=== PATIENT | female | born 1980 | race Caucasian/White ===

== ENCOUNTER 2025-04-22 08:21 | Outpatient (CLI) | payer OTHER, SELFPAY ==
--- NOTE | ~2025-04-22 | XR_ITS ---
EXAM/PROCEDURE: XR chest 2V - 04/22/2025 8:35 CDT HISTORY: 44 years old Female with Nicotine dependence TECHNIQUE: Two view(s) of the chest. COMPARISON: None available. FINDINGS: LUNGS/ PLEURA: No focal consolidation. No appreciable pneumothorax or large pleural effusion. HEART/ MEDIASTINUM: Heart appears normal in size. BONES: No acute osseous abnormality. OTHER: Visualized upper abdomen is unremarkable. IMPRESSION: No acute process. Reviewed, dictated and finalized at location A. IMPRESSION: No acute process.
--- OUTSIDE RECORDS SUMMARY | 2025-04-22 08:33 | XMS_ITS | Data Portability ---
Author Organization [place] - [facility] [employer], Main Office Address [address] [place] [address] Care Team Providers Care [employer] Hat Blocker Name Role Phone ETIENNE CHOWDARY Primary Care Provider Assessment Encounter Date Assessment Date Assessment LastModified by Organization Details LastModified Time 12/18/2022 12/18/2022 MONTESSORI TODDLER TEACHER- Romain Espitia and CARMEND on Mammogram. Not available 12/18/2022 16:34:59 12/23/2023 12/23/2023 43 yo F with - WELL ADULT VISIT - SMOKER - OVERWEIGHT D/w pt about her findings, recent labs & imagines and further plan of care. Will do routine labs, cxr. Pt declined for hcg. Diet and exercise explained in detail. Educated about different options for her. HM: WWE - 2 yrs ago, normal as per pt. Cont f/u with Gyne as per schedule. Mammo - 03/05, normal as per pt. Pt gets with her Gyne. Flu - 12/23/23. Tdap - 12/01. F/u in 3-4 weeks. Annual labs in 01/05. [email or web address] Not available 12/23/2023 17:20:17 02/13/2024 02/13/2024 The patient gave verbal consent using TelePhonic services and the consent is documented in the medical record prior to using the service. The patient has been informed of what a TeleMedicine visit is. Patient is located at home. Provider is located at office. Names and roles of persons in addition to the patient and provider participating in telemedicine services include none. The patient had a 5 minute TeleMedicine consultation via [employer] to discuss the following: left eye lid swelling, periorbital cellulitis [email or web address] Not available 02/13/2024 11:37:17 03/03/2025 03/03/2025 44 yo F with - WELL ADULT VISIT - VIT D DEFICIENCY - SMOKER - OVERWEIGHT Annual labs: 03/24/24. D/w pt about her findings, recent labs & imagines and further plan of care. Will do routine labs, cxr. Pt declined for hcg. Meds as directed. Diet and exercise explained in detail. Educated about different options for her. Cont f/u with Ophtho as per schedule. HM: WWE - 2 yrs ago, normal as per pt. Cont f/u with Gyne as per schedule. Mammo - 10/29/24. Pt gets with her Gyne. Flu - 12/23/23. Tdap - 12/01. F/u in 2-3 weeks. Annual labs in 04/08. [email or web address] Not available 03/03/2025 16:57:04 Plan of Treatment Reminders Order Date Submit Date Provider Last Modified By Organization Details Last Modified Time Details Appointments None recorded. Lab glycohemogl obin, total, blood 2024 025 4 [facility] (Lab), [address] [place], [address], 5 18:01:49 vitamin D, 25-hydroxy, total, serum 2024 025 [place] [address] [facility], Replaced by [facility] [address], [place], [address], 5 18:01:49 CBC w/ auto diff 2024 025 [email or web address] [facility] (Lab), [address] [place], [address], 5 18:01:48 CMP, serum or plasma 2024 025 4 [facility] (Lab), [address] [place], [address], 5 18:01:48 lipid panel, serum [address] (Lab), [address] [place], [address], 5 18:01:48 TSH, serum, reflex free T4 [address] (Lab), [address] [place], [address], 5 18:01:48 urinalysis complete, reflex culture [address] (Lab), [address] [place], [address], 5 18:01:48 vitamin D, 25-hydroxy, total, serum [address] (Lab), [address] [place], [address], 4 07:57:22 glycohemogl obin, total, blood [address] (Lab), [address] [place], [address], 4 07:57:22 CBC w/ auto diff [address] (Lab), [address] [place], [address], 4 07:57:21 CMP, serum or plasma [address] (Lab), [address] [place], [address], 4 07:57:21 lipid panel, serum [address] (Lab), [address] [place], [address], 4 07:57:21 TSH, serum, reflex free T4 [address] (Lab), [address] [place], [address], 4 07:57:22 urinalysis complete, reflex culture [address] (Lab), [address] [place], [address], 4 07:57:22 lipid panel, serum 2022 023 [facility], [address] [place], [address], 3 04:23:36 TSH, serum, reflex free T4 [address], [address] [place], [address], 3 08:00:39 CMP, serum or plasma 2022 023 [facility], [address] [place], [address], 3 04:23:37 HbA1c (hemoglobin A1c), blood 2022 023 [facility], [address] [place], [address], 3 04:23:40 CBC w/ auto diff 2022 023 [facility], [address] [place], [address], 3 04:23:38 Referral None recorded. Procedures None recorded. Surgeries None recorded. Imaging XR, chest, 2 view [address], [address], [place], [address], 5 14:35:50 XR, chest, 2 view 2023 024 [email or web address] Not available 4 08:59:54 Medication Orders neomycin-po lymyxin-hyd rocort 3.5 mg-10,000 unit/mL-1 % ear drops,susp 2024 025 [id number], [address], [place], [place], [id number], 5 16:52:26 nicotine 7 mg/24 hr daily transdermal patch 2024 025 [id number], [address], [place], [place], [id number], 5 16:48:08 doxycycline monohydrate 100 mg capsule 2023 024 [id number], [address], [place], [place], [id number], 5 16:42:26 nicotine 7 mg/24 hr daily transdermal patch 2023 024 [email or web address] [id number], [address] [place], [place], [id number], 4 17:19:30 Patient TargetsNo targets recorded. Patient Instructions Encounter Date Encounter Id Patient Instructions Last Modified By Organization Details Last Modified Time 12/18/2022 [id number] FU in 1 year for wellness after 12/19/23 Not available 12/18/2022 16:34:39 12/23/2023 [id number] starting a weigh t loss plan: care instructions [email or web address] Not available 12/23/2023 17:11:51 02/13/2024 [id number] Due to the COVID-19 (Novel Coronavirus) pandemic, it is within this context (and with the understanding that this method of patient encounter is in the patient s best interest as well as the health and safety of other patients and the public) that t [facility] is being provided for this patient encounter rather than a tsgt-od-aoex visit. This patient encounter is appropriate at this time. This patient has been advised of the potential risks and limitations of this mode of treatment (including, but not limited to, the absence of in-person examination) and has agreed to be treated in a remote fashion despite these risks. Any and all of the patient s /patient s family s questions on this issue have been answered, and I have made no promises or guarantees to the patient. The patient has also been advised to contact this office for worsening conditions or problems, and seek emergency medical treatment and/or call 911 if the patient deems either necessary. HPI and/or vitals, if listed, were provided by the patient. [email or web address] Not available 02/13/2024 11:23:22 03/03/2025 [id number] starting a weigh t loss plan: care instructions [email or web address] Not available 03/03/2025 16:47:52 Reason for Referral None Reported. Results Created Date Observation Date Name Description Value Unit Range Abnormal Flag Note LastModifiedBy Organization Detail LastModifiedTime 12/22/19 22 12/22/2021 HEMOG LOBIN A1C hemoglobin A1C 4.8 %_of_ total _HGB <5.7 normal For the purpo se of benita calderon for the prese nce of diabe candelaria: <5.7% Consi stent with the absen ce of diabe candelaria 5.7-6 .4% Consi stent with incre ased risk for diabe candelaria (pred iabet es) > or =6.5% Consi stent with diabe candelaria This assay resul t is consi stent with a decre ased risk of diabe candelaria. Curre ntly, no conse nsus exist s leonora mosqueda use of hemog lobin A1c for diagn osis of diabe candelaria in child sujatha. Accor ding to Ameri can Diabe candelaria Assoc iatio n (ADA) guide lines , hemog lobin A1c <7.0% repre sents optim al contr ol in non-p regna nt diabe tic patie nts. Diffe rent metri cs may apply to speci fic patie nt popul ation s. [facility] ards of Medic al Care in Diabe candelaria(A DA). Not Available [address], [address], 12/22/2021 04:26:24 12/22/19 22 12/22/2021 TSH W/REF ELIZABETH TO FT4 TSH w/reflex to FT4 1.68 mIU/L normal Refer ence Range > or = 20 Years 0.40- 4.50 Pregn christel Range s First trime ster 0.26- 2.66 Secon d trime ster 0.55- 2.73 Third trime ster 0.43- 2.91 Not Available [address], [address], 12/22/2021 04:26:24 12/22/19 22 12/22/2021 CBC (INCL UDES DIFF/ PLT) white blood cell count 5.1 thous and/u L 3.8-10 .8 normal Not Available [address], [address], 12/22/2021 04:26:23 12/22/19 22 12/22/2021 CBC (INCL UDES DIFF/ PLT) red blood cell count 4.83 gavi on/uL 3.80-5 .10 normal Not Available [address], [address], 12/22/2021 04:26:23 12/22/19 22 12/22/2021 CBC (INCL UDES DIFF/ PLT) hemoglobin 14.6 g/dL 11.7-1 5.5 normal Not Available [address], [address], 12/22/2021 04:26:23 12/22/19 22 12/22/2021 CBC (INCL UDES DIFF/ PLT) hematocrit 42.9 % 35.0-4 5.0 normal Not Available [address], [address], 12/22/2021 04:26:23 12/22/19 22 12/22/2021 CBC (INCL UDES DIFF/ PLT) MCV 88.8 fL 80.0-1 00.0 normal Not Available [address], [address], 12/22/2021 04:26:23 12/22/19 22 12/22/2021 CBC (INCL UDES DIFF/ PLT) MCH 30.2 pg 27.0-3 3.0 normal Not Available [address], [address], 12/22/2021 04:26:23 12/22/19 22 12/22/2021 CBC (INCL UDES DIFF/ PLT) MCHC 34.0 g/dL 32.0-3 6.0 normal Not Available [address], [address], 12/22/2021 04:26:23 12/22/19 22 12/22/2021 CBC (INCL UDES DIFF/ PLT) RDW 12.1 % 11.0-1 5.0 normal Not Available [address], [address], 12/22/2021 04:26:23 12/22/19 22 12/22/2021 CBC (INCL UDES DIFF/ PLT) platelet count 219 thous and/u L 140-40 0 normal Not Available [address], [address], 12/22/2021 04:26:23 12/22/19 22 12/22/2021 CBC (INCL UDES DIFF/ PLT) MPV 10.3 fL 7.5-12 .5 normal Not Available [address], [address], 12/22/2021 04:26:23 12/22/19 22 12/22/2021 CBC (INCL UDES DIFF/ PLT) absolute neutrophils 2943 cells /uL 1500-7 800 normal Not Available [address], [address], 12/22/2021 04:26:23 12/22/19 22 12/22/2021 CBC (INCL UDES DIFF/ PLT) absolute lymphocytes 1709 cells /uL 850-39 00 normal Not Available [address], [address], 12/22/2021 04:26:23 12/22/19 22 12/22/2021 CBC (INCL UDES DIFF/ PLT) absolute monocytes 357 cells /uL 200-95 0 normal Not Available [address], [address], 12/22/2021 04:26:23 12/22/19 22 12/22/2021 CBC (INCL UDES DIFF/ PLT) absolute eosinophils 61 cells /uL 15-500 normal Not Available [address], [address], 12/22/2021 04:26:23 12/22/19 22 12/22/2021 CBC (INCL UDES DIFF/ PLT) absolute basophils 31 cells /uL 0-200 normal Not Available [address], [address], 12/22/2021 04:26:23 12/22/19 22 12/22/2021 CBC (INCL UDES DIFF/ PLT) neutrophils 57.7 % normal Not Available [address], [address], 12/22/2021 04:26:23 12/22/19 22 12/22/2021 CBC (INCL UDES DIFF/ PLT) lymphocytes 33.5 % normal Not Available [address], [address], 12/22/2021 04:26:23 12/22/19 22 12/22/2021 CBC (INCL UDES DIFF/ PLT) monocytes 7.0 % normal Not Available [address], [address], 12/22/2021 04:26:23 12/22/19 22 12/22/2021 CBC (INCL UDES DIFF/ PLT) eosinophils 1.2 % normal Not Available [address], [address], 12/22/2021 04:26:23 12/22/19 22 12/22/2021 CBC (INCL UDES DIFF/ PLT) basophils 0.6 % normal Not Available [address], [address], 12/22/2021 04:26:23 12/22/19 22 12/22/2021 COMPR EHENS LALI METAB OLIC PANEL eGFR non-afr. swazi 111 mL/mi n/1.7 3m2 > or = 60 normal Not Available [address], [address], 12/22/2021 04:26:22 12/22/19 22 12/22/2021 COMPR EHENS LALI METAB OLIC PANEL glucose 86 mg/dL 65-99 normal Fasti ng refer ence inter marisabel Not Available [address], [address], 12/22/2021 04:26:22 12/22/19 22 12/22/2021 COMPR EHENS LALI METAB OLIC PANEL urea nitrogen (BUN) 11 mg/dL 7-25 normal Not Available [address], [address], 12/22/2021 04:26:22 12/22/19 22 12/22/2021 COMPR EHENS LALI METAB OLIC PANEL creatinine 0.65 mg/dL 0.50-1 .10 normal Not Available [address], [address], 12/22/2021 04:26:22 12/22/19 22 12/22/2021 COMPR EHENS LALI METAB OLIC PANEL eGFR 129 mL/mi n/1.7 3m2 > or = 60 normal Not Available [address], [address], 12/22/2021 04:26:22 12/22/19 22 12/22/2021 COMPR EHENS LALI METAB OLIC PANEL BUN/creatini ne ratio not applic able (calc ) 6-22 Not Available [address], [address], 12/22/2021 04:26:22 12/22/19 22 12/22/2021 COMPR EHENS LALI METAB OLIC PANEL sodium 140 mmol/ L 135-14 6 normal Not Available [address], [address], 12/22/2021 04:26:22 12/22/19 22 12/22/2021 COMPR EHENS LALI METAB OLIC PANEL potassium 4.0 mmol/ L 3.5-5. 3 normal Not Available [address], [address], 12/22/2021 04:26:22 12/22/19 22 12/22/2021 COMPR EHENS LALI METAB OLIC PANEL chloride 105 mmol/ L 98-110 normal Not Available [address], [address], 12/22/2021 04:26:22 12/22/19 22 12/22/2021 COMPR EHENS LALI METAB OLIC PANEL carbon dioxide 28 mmol/ L 20-32 normal Not Available [address], [address], 12/22/2021 04:26:22 12/22/19 22 12/22/2021 COMPR EHENS LALI METAB OLIC PANEL calcium 9.3 mg/dL 8.6-10 .2 normal Not Available [address], [address], 12/22/2021 04:26:22 12/22/19 22 12/22/2021 COMPR EHENS LALI METAB OLIC PANEL protein, total 6.8 g/dL 6.1-8. 1 normal Not Available [address], [address], 12/22/2021 04:26:22 12/22/19 22 12/22/2021 COMPR EHENS LALI METAB OLIC PANEL albumin 4.6 g/dL 3.6-5. 1 normal Not Available [address], [address], 12/22/2021 04:26:22 12/22/19 22 12/22/2021 COMPR EHENS LALI METAB OLIC PANEL globulin 2.2 g/dL_ (calc ) 1.9-3. 7 normal Not Available [address], [address], 12/22/2021 04:26:22 12/22/19 22 12/22/2021 COMPR EHENS LALI METAB OLIC PANEL albumin/glob ulin ratio 2.1 (calc ) 1.0-2. 5 normal Not Available [address], [address], 12/22/2021 04:26:22 12/22/19 22 12/22/2021 COMPR EHENS LALI METAB OLIC PANEL bilirubin, total 0.8 mg/dL 0.2-1. 2 normal Not Available [address], [address], 12/22/2021 04:26:22 12/22/19 22 12/22/2021 COMPR EHENS LALI METAB OLIC PANEL alkaline phosphatase 53 U/L 31-125 normal Not Available [address] [place], [address], 12/22/2021 04:26:22 12/22/19 22 12/22/2021 COMPR EHENS LALI METAB OLIC PANEL AST 10 U/L 10-30 normal Not Available [address] [address] [place], [address], 12/22/2021 04:26:22 12/22/19 22 12/22/2021 COMPR EHENS LALI METAB OLIC PANEL ALT 8 U/L 6-29 normal Not Available [address] [address] [place], [address], 12/22/2021 04:26:22 12/22/19 22 12/22/2021 LIPID PANEL , STAND STEFANIA non HDL cholesterol 108 mg/dL _(kwame c) <130 normal For patie nts with diabe candelaria plus 1 major ASCVD risk facto r, treat ing to a non-H DL-C goal of <100 mg/dL (LDL- C of <70 mg/dL ) is consi dered a odettea pegio c optio n. Not Available [place] [address] [place], [address], 12/22/2021 04:26:22 12/22/19 22 12/22/2021 LIPID PANEL , STAND STEFANIA cholesterol, total 160 mg/dL <200 normal Not Available [place] [address] [place], [address], 12/22/2021 04:26:22 12/22/19 22 12/22/2021 LIPID PANEL , STAND STEFANIA HDL cholesterol 52 mg/dL > or = 50 normal Not Available [address], [address], 12/22/2021 04:26:22 12/22/19 22 12/22/2021 LIPID PANEL , STAND STEFANIA triglyceride s 119 mg/dL <150 normal Not Available [facility] [address] [place], [address], 12/22/2021 04:26:22 12/22/19 22 12/22/2021 LIPID PANEL , STAND STEFANIA LDL-choleste rol 86 mg/dL _(kwame c) normal Refer ence range : <100 Matt able range <100 mg/dL for prima ry preve ntion ; <70 mg/dL for patie nts with CHD or diabe tic patie nts with > or = 2 CHD risk facto rs. LDL-C is now calcu lated using the Richelle n-Hop kins calcu latio n, which is a valid ated novel metho d provi ding jeane r accur acy than the Fried rosanna equat ion in the estim ation of LDL-C . Richelle carballo SS et al. NIDA. 2013; 310(1 9): 2061- 2068 (http ://ed ucati on.TurboTranslations. com/f aq/FA Q164) Not Available [address], [address], 12/22/2021 04:26:22 12/22/19 22 12/22/2021 LIPID PANEL , STAND STEFANIA chol/HDLC ratio 3.1 (calc ) <5.0 normal Not Available [address], [address], 12/22/2021 04:26:22 01/05/20 23 01/05/2023 LIPID PANEL , STAND STEFANIA cholesterol, total 159 mg/dL <200 normal Not Available [address], [address], 01/05/2023 04:23:36 01/05/20 23 01/05/2023 LIPID PANEL , STAND STEFANIA HDL cholesterol 58 mg/dL > or = 50 normal Not Available [address], [address], 01/05/2023 04:23:36 01/05/20 23 01/05/2023 LIPID PANEL , STAND STEFANIA triglyceride s 97 mg/dL <150 normal Not Available [facility] [address] [place], [address], 01/05/2023 04:23:36 01/05/20 23 01/05/2023 LIPID PANEL , STAND STEFANIA LDL-choleste rol 82 mg/dL _(kwame c) normal Refer ence range : <100 Matt able range <100 mg/dL for prima ry preve ntion ; <70 mg/dL for patie nts with CHD or diabe tic patie nts with > or = 2 CHD risk facto rs. LDL-C is now calcu lated using the Richelle n-Hop kins calcu cruz n, which is a valid ated novel alcideso d franklyn alvarenga accur acy than the Fried rosanna equat ion in the estim ation of LDL-C . Richelle carballo SS et al. NIDA. 2013; 310(1 9): 2061- 2068 (http ://ed ucati on.Digital H[employer] Tyson Kick[employer]. com/f aq/FA Q164) Not Available [facility] [address] [address], [place], [address], 01/05/2023 04:23:36 01/05/2001/05/2023 LIPID PANEL , STAND STEFANIA chol/HDLC ratio 2.7 (calc ) <5.0 normal Not Available [facility] [address] [place], [address], 01/05/2023 04:23:36 01/05/20 23 01/05/2023 LIPID PANEL , STAND STEFANIA non HDL cholesterol 101 mg/dL _(kwame c) <130 normal For patie nts with diabe candelaria plus 1 major ASCVD risk facto r, treat ing to a non-H DL-C goal of <100 mg/dL (LDL- C of <70 mg/dL ) is consi dered a thera ulisses c optio n. Not Available [facility] [address] [place], [address], 01/05/2023 04:23:36 01/05/20 23 01/05/2023 COMPR EHENS LALI METAB OLIC PANEL glucose 77 mg/dL 65-99 normal Fasti ng refer ence inter marisabel Not Available [address], [address], 01/05/2023 04:23:37 01/05/20 23 01/05/2023 COMPR EHENS LALI METAB OLIC PANEL urea nitrogen (BUN) 10 mg/dL 7-25 normal Not Available [address], [address], 01/05/2023 04:23:37 01/05/20 23 01/05/2023 COMPR EHENS LALI METAB OLIC PANEL creatinine 0.72 mg/dL 0.50-0 .99 normal Not Available [address], [address], 01/05/2023 04:23:37 01/05/20 23 01/05/2023 COMPR EHENS LALI METAB OLIC PANEL eGFR 108 mL/mi n/1.7 3m2 > or = 60 normal The eGFR is based on the CKD-E PI 2020 jose angel patterson. To calcu late the new eGFR from a previ ous Creat inine or Cysta tin C resul t, go to https ://giancarlo maloney.jessica enciso/radha winslow s/ kdoqi /gfr% 5Fcal culat or Not Available [address], [address], 01/05/2023 04:23:37 01/05/20 23 01/05/2023 COMPR EHENS LALI METAB OLIC PANEL BUN/creatini ne ratio NOT APPLIC ABLE (calc ) 6-22 Not Available [address], [address], 01/05/2023 04:23:37 01/05/20 23 01/05/2023 COMPR EHENS LALI METAB OLIC PANEL sodium 140 mmol/ L 135-14 6 normal Not Available [address], [address], 01/05/2023 04:23:37 01/05/20 23 01/05/2023 COMPR EHENS LALI METAB OLIC PANEL potassium 4.0 mmol/ L 3.5-5. 3 normal Not Available [address], [address], 01/05/2023 04:23:37 01/05/20 23 01/05/2023 COMPR EHENS LALI METAB OLIC PANEL chloride 106 mmol/ L 98-110 normal Not Available [address], [address], 01/05/2023 04:23:37 01/05/20 23 01/05/2023 COMPR EHENS LALI METAB OLIC PANEL carbon dioxide 26 mmol/ L 20-32 normal Not Available [address], [address], 01/05/2023 04:23:37 01/05/20 23 01/05/2023 COMPR EHENS LALI METAB OLIC PANEL calcium 9.2 mg/dL 8.6-10 .2 normal Not Available [address], [address], 01/05/2023 04:23:37 01/05/20 23 01/05/2023 COMPR EHENS LALI METAB OLIC PANEL protein, total 6.6 g/dL 6.1-8. 1 normal Not Available [address], [address], 01/05/2023 04:23:37 01/05/20 23 01/05/2023 COMPR EHENS LALI METAB OLIC PANEL albumin 4.5 g/dL 3.6-5. 1 normal Not Available [address], [address], 01/05/2023 04:23:37 01/05/20 23 01/05/2023 COMPR EHENS LALI METAB OLIC PANEL globulin 2.1 g/dL_ (calc ) 1.9-3. 7 normal Not Available [address], [address], 01/05/2023 04:23:37 01/05/20 23 01/05/2023 COMPR EHENS LALI METAB OLIC PANEL albumin/glob ulin ratio 2.1 (calc ) 1.0-2. 5 normal Not Available [address], [address], 01/05/2023 04:23:37 01/05/20 23 01/05/2023 COMPR EHENS LALI METAB OLIC PANEL bilirubin, total 0.6 mg/dL 0.2-1. 2 normal Not Available [address], [address], 01/05/2023 04:23:37 01/05/20 23 01/05/2023 COMPR EHENS LALI METAB OLIC PANEL alkaline phosphatase 53 U/L 31-125 normal Not Available [address], [address], 01/05/2023 04:23:37 01/05/20 23 01/05/2023 COMPR EHENS LALI METAB OLIC PANEL AST 13 U/L 10-30 normal Not Available [address], [address], 01/05/2023 04:23:37 01/05/20 23 01/05/2023 COMPR EHENS LALI METAB OLIC PANEL ALT 9 U/L 6-29 normal Not Available [address], [address], 01/05/2023 04:23:37 01/05/20 23 01/05/2023 CBC (INCL UDES DIFF/ PLT) white blood cell count 7.1 thous and/u L 3.8-10 .8 normal Not Available [address], [address], 01/05/2023 04:23:38 01/05/20 23 01/05/2023 CBC (INCL UDES DIFF/ PLT) red blood cell count 4.78 gavi on/uL 3.80-5 .10 normal Not Available [address], [address], 01/05/2023 04:23:38 01/05/20 23 01/05/2023 CBC (INCL UDES DIFF/ PLT) hemoglobin 14.8 g/dL 11.7-1 5.5 normal Not Available [address], [address], 01/05/2023 04:23:38 01/05/20 23 01/05/2023 CBC (INCL UDES DIFF/ PLT) hematocrit 42.9 % 35.0-4 5.0 normal Not Available [address], [address], 01/05/2023 04:23:38 01/05/20 23 01/05/2023 CBC (INCL UDES DIFF/ PLT) MCV 89.7 fL 80.0-1 00.0 normal Not Available [address], [address], 01/05/2023 04:23:38 01/05/20 23 01/05/2023 CBC (INCL UDES DIFF/ PLT) MCH 31.0 pg 27.0-3 3.0 normal Not Available [address], [address], 01/05/2023 04:23:38 01/05/20 23 01/05/2023 CBC (INCL UDES DIFF/ PLT) MCHC 34.5 g/dL 32.0-3 6.0 normal Not Available [address], [address], 01/05/2023 04:23:38 01/05/20 23 01/05/2023 CBC (INCL UDES DIFF/ PLT) RDW 12.3 % 11.0-1 5.0 normal Not Available [address], [address], 01/05/2023 04:23:38 01/05/20 23 01/05/2023 CBC (INCL UDES DIFF/ PLT) platelet count 220 thous and/u L 140-40 0 normal Not Available [address], [address], 01/05/2023 04:23:38 01/05/20 23 01/05/2023 CBC (INCL UDES DIFF/ PLT) MPV 10.1 fL 7.5-12 .5 normal Not Available [address], [address], 01/05/2023 04:23:38 01/05/20 23 01/05/2023 CBC (INCL UDES DIFF/ PLT) absolute neutrophils 4381 cells /uL 1500-7 800 normal Not Available [address], [address], 01/05/2023 04:23:38 01/05/20 23 01/05/2023 CBC (INCL UDES DIFF/ PLT) absolute lymphocytes 2024 cells /uL 850-39 00 normal Not Available [address], [address], 01/05/2023 04:23:38 01/05/20 23 01/05/2023 CBC (INCL UDES DIFF/ PLT) absolute monocytes 525 cells /uL 200-95 0 normal Not Available [address], [id number], 01/05/2023 04:23:38 01/05/20 23 01/05/2023 CBC (INCL UDES DIFF/ PLT) absolute eosinophils 128 cells /uL 15-500 normal Not Available [address], [id number], 01/05/2023 04:23:38 01/05/20 23 01/05/2023 CBC (INCL UDES DIFF/ PLT) absolute basophils 43 cells /uL 0-200 normal Not Available [facility] [address], [address], 01/05/2023 04:23:38 01/05/20 23 01/05/2023 CBC (INCL UDES DIFF/ PLT) neutrophils 61.7 % normal Not Available [facility] [address], [address], 01/05/2023 04:23:38 01/05/20 23 01/05/2023 CBC (INCL UDES DIFF/ PLT) lymphocytes 28.5 % normal Not Available [address], [address], 01/05/2023 04:23:38 01/05/20 23 01/05/2023 CBC (INCL UDES DIFF/ PLT) monocytes 7.4 % normal Not Available [address], [address], 01/05/2023 04:23:38 01/05/20 23 01/05/2023 CBC (INCL UDES DIFF/ PLT) eosinophils 1.8 % normal Not Available [address], [address], 01/05/2023 04:23:38 01/05/20 23 01/05/2023 CBC (INCL UDES DIFF/ PLT) basophils 0.6 % normal Not Available [address], [address], 01/05/2023 04:23:38 01/05/20 23 01/05/2023 TSH W/REF ELIZABETH TO FT4 TSH w/reflex to FT4 2.00 mIU/L normal Refer ence Range > or = 20 Years 0.40- 4.50 Pregn christel Range s First trime ster 0.26- 2.66 Secon d trime ster 0.55- 2.73 Third trime ster 0.43- 2.91 Not Available [facility] [address] [address] [place], [address], 01/05/2023 04:23:39 01/05/20 23 01/05/2023 HEMOG LOBIN A1C hemoglobin A1C 4.8 %_of_ total _HGB <5.7 normal For the purpo se of scree yumiko for the prese nce of diabe candelaria: <5.7% Consi stent with the absen ce of diabe candelaria 5.7-6 .4% Consi stent with incre ased risk for diabe candelaria (pred iabet es) > or =6.5% Consi stent with diabe candelaria This assay resul t is consi stent with a decre ased risk of diabe candelaria. Curre ntly, no conse nsus exist s leonora mosqueda use of hemog lobin A1c for diagn osis of diabe candelaria in child sujatha. Accor ding to Ameri can Diabe candelaria Assoc iatio n (ADA) guide lines , hemog lobin A1c <7.0% repre sents optim al contr ol in non-p regna nt diabe tic patie nts. Diffe rent metri cs may apply to speci fic patie nt popul ation s. [facility] Medic al Care in Diabe candelaria(A DA). Not Available [facility] [address], [place], [address], 01/05/2023 04:23:40 03/24/20 24 03/25/2024 LIPID PANEL , STAND STEFANIA cholesterol, total 156 mg/dL <200 normal Not Available [facility] [address] [place], [address], 03/25/2024 22:55:38 03/24/20 24 03/25/2024 LIPID PANEL , STAND STEFANIA HDL cholesterol 50 mg/dL > or = 50 normal Not Available [address] [address] [address], [place], [address], 03/25/2024 22:55:38 03/24/20 24 03/25/2024 LIPID PANEL , STAND STEFANIA triglyceride s 118 mg/dL <150 normal Not Available [address] [address] [address] , [place], [address], 03/25/2024 22:55:38 03/24/20 24 03/25/2024 LIPID PANEL , STAND STEFANIA LDL-choleste rol 85 mg/dL _(kwame c) normal Refer ence range : <100 Matt able range <100 mg/dL for prima ry preve ntion ; <70 mg/dL for patie nts with CHD or diabe tic patie nts with > or = 2 CHD risk facto rs. LDL-C is now calcu lated using the Richelle n-Hop kins calcu cruz n, which is a valid ated novel alcideso d franklyn kingte r accur acy than the Fried rosanna equat ion in the estim ation of LDL-C . Richelle carballo SS et al. NIDA. 2013; 310(1 9): 2061- 2068 (http ://ed ucati on.Qu Tyson [employer]. com/f aq/FA Q164) Not Available [address] [address] [address], [place], [address], 03/25/2024 22:55:38 03/24/20 24 03/25/2024 LIPID PANEL , STAND STEFANIA chol/HDLC ratio 3.1 (calc ) <5.0 normal Not Available [facility] [address] [address] [address] , [place], [address], 03/25/2024 22:55:38 03/24/20 24 03/25/2024 LIPID PANEL , STAND STEFANIA non HDL cholesterol 106 mg/dL _(kwame c) <130 normal For patie nts with diabe candelaria plus 1 major ASCVD risk facto r, treat ing to a non-H DL-C goal of <100 mg/dL (LDL- C of <70 mg/dL ) is consi dered a thera peuti c optio n. Not Available [address] [address] [place], [address], 03/25/2024 22:55:38 03/24/20 24 03/25/2024 COMPR EHENS LALI METAB OLIC PANEL glucose 77 mg/dL 65-99 normal Fasti ng refer ence inter marisabel Not Available [address] [address] [place], [address], 03/25/2024 22:55:39 03/24/20 24 03/25/2024 COMPR EHENS LALI METAB OLIC PANEL urea nitrogen (BUN) 11 mg/dL 7-25 normal Not Available [address] [address] [place], [address], 03/25/2024 22:55:39 03/24/20 24 03/25/2024 COMPR EHENS LALI METAB OLIC PANEL creatinine 0.71 mg/dL 0.50-0 .99 normal Not Available [address] [address] [place], [address], 03/25/2024 22:55:39 03/24/20 24 03/25/2024 COMPR EHENS LALI METAB OLIC PANEL eGFR 109 mL/mi n/1.7 3m2 > or = 60 normal Not Available [address], [address], 03/25/2024 22:55:39 03/24/20 24 03/25/2024 COMPR EHENS LALI METAB OLIC PANEL BUN/creatini ne ratio SEE NOTE: (calc ) 6-22 Not Repor emy: BUN and Creat inine are withi n refer ence range . Not Available [address] [address] [place], [address], 03/25/2024 22:55:39 03/24/20 24 03/25/2024 COMPR EHENS LALI METAB OLIC PANEL sodium 137 mmol/ L 135-14 6 normal Not Available [address] [place], [address], 03/25/2024 22:55:39 03/24/20 24 03/25/2024 COMPR EHENS LALI METAB OLIC PANEL potassium 4.1 mmol/ L 3.5-5. 3 normal Not Available [address], [address], 03/25/2024 22:55:39 03/24/20 24 03/25/2024 COMPR EHENS LALI METAB OLIC PANEL chloride 105 mmol/ L 98-110 normal Not Available [address], [address], 03/25/2024 22:55:39 03/24/20 24 03/25/2024 COMPR EHENS LALI METAB OLIC PANEL carbon dioxide 25 mmol/ L 20-32 normal Not Available [address], [address], 03/25/2024 22:55:39 03/24/20 24 03/25/2024 COMPR EHENS LALI METAB OLIC PANEL calcium 8.9 mg/dL 8.6-10 .2 normal Not Available [address], [address], 03/25/2024 22:55:39 03/24/20 24 03/25/2024 COMPR EHENS LALI METAB OLIC PANEL protein, total 6.4 g/dL 6.1-8. 1 normal Not Available [address], [address], 03/25/2024 22:55:39 03/24/20 24 03/25/2024 COMPR EHENS LALI METAB OLIC PANEL albumin 4.3 g/dL 3.6-5. 1 normal Not Available [address], [address], 03/25/2024 22:55:39 03/24/20 24 03/25/2024 COMPR EHENS LALI METAB OLIC PANEL globulin 2.1 g/dL_ (calc ) 1.9-3. 7 normal Not Available [address], [address], 03/25/2024 22:55:39 03/24/20 24 03/25/2024 COMPR EHENS LALI METAB OLIC PANEL albumin/glob ulin ratio 2.0 (calc ) 1.0-2. 5 normal Not Available [address], [address], 03/25/2024 22:55:39 03/24/20 24 03/25/2024 COMPR EHENS LALI METAB OLIC PANEL bilirubin, total 0.7 mg/dL 0.2-1. 2 normal Not Available [address], [address], 03/25/2024 22:55:39 03/24/20 24 03/25/2024 COMPR EHENS LALI METAB OLIC PANEL alkaline phosphatase 55 U/L 31-125 normal Not Available [address], [address], 03/25/2024 22:55:39 03/24/20 24 03/25/2024 COMPR EHENS LALI METAB OLIC PANEL AST 12 U/L 10-30 normal Not Available [address], [address], 03/25/2024 22:55:39 03/24/20 24 03/25/2024 COMPR EHENS LALI METAB OLIC PANEL ALT 13 U/L 6-29 normal Not Available [address], [address], 03/25/2024 22:55:39 03/24/20 24 03/25/2024 CBC (INCL UDES DIFF/ PLT) white blood cell count 6.5 thous and/u L 3.8-10 .8 normal Not Available [address], [address], 03/25/2024 22:55:40 03/24/20 24 03/25/2024 CBC (INCL UDES DIFF/ PLT) red blood cell count 4.93 gavi on/uL 3.80-5 .10 normal Not Available [address], [address], 03/25/2024 22:55:40 03/24/20 24 03/25/2024 CBC (INCL UDES DIFF/ PLT) hemoglobin 15.0 g/dL 11.7-1 5.5 normal Not Available [address], [address], 03/25/2024 22:55:40 03/24/20 24 03/25/2024 CBC (INCL UDES DIFF/ PLT) hematocrit 44.9 % 35.0-4 5.0 normal Not Available [address], [address], 03/25/2024 22:55:40 03/24/20 24 03/25/2024 CBC (INCL UDES DIFF/ PLT) MCV 91.1 fL 80.0-1 00.0 normal Not Available [address], [address], 03/25/2024 22:55:40 03/24/20 24 03/25/2024 CBC (INCL UDES DIFF/ PLT) MCH 30.4 pg 27.0-3 3.0 normal Not Available [address], [address], 03/25/2024 22:55:40 03/24/20 24 03/25/2024 CBC (INCL UDES DIFF/ PLT) MCHC 33.4 g/dL 32.0-3 6.0 normal Not Available [address], [address], 03/25/2024 22:55:40 03/24/20 24 03/25/2024 CBC (INCL UDES DIFF/ PLT) RDW 12.1 % 11.0-1 5.0 normal Not Available [address], [address], 03/25/2024 22:55:40 03/24/20 24 03/25/2024 CBC (INCL UDES DIFF/ PLT) platelet count 200 thous and/u L 140-40 0 normal Not Available [address], [address], 03/25/2024 22:55:40 03/24/20 24 03/25/2024 CBC (INCL UDES DIFF/ PLT) MPV 9.5 fL 7.5-12 .5 normal Not Available [address], [address], 03/25/2024 22:55:40 03/24/20 24 03/25/2024 CBC (INCL UDES DIFF/ PLT) absolute neutrophils 4030 cells /uL 1500-7 800 normal Not Available [address], [address], 03/25/2024 22:55:40 03/24/20 24 03/25/2024 CBC (INCL UDES DIFF/ PLT) absolute lymphocytes 1814 cells /uL 850-39 00 normal Not Available [address], [address], 03/25/2024 22:55:40 03/24/20 24 03/25/2024 CBC (INCL UDES DIFF/ PLT) absolute monocytes 488 cells /uL 200-95 0 normal Not Available [address], [address], 03/25/2024 22:55:40 03/24/20 24 03/25/2024 CBC (INCL UDES DIFF/ PLT) absolute eosinophils 137 cells /uL 15-500 normal Not Available [address], [address], 03/25/2024 22:55:40 03/24/20 24 03/25/2024 CBC (INCL UDES DIFF/ PLT) absolute basophils 33 cells /uL 0-200 normal Not Available [address], [address], 03/25/2024 22:55:40 03/24/20 24 03/25/2024 CBC (INCL UDES DIFF/ PLT) neutrophils 62 % normal Not Available [address], [address], 03/25/2024 22:55:40 03/24/20 24 03/25/2024 CBC (INCL UDES DIFF/ PLT) lymphocytes 27.9 % normal Not Available [address], [address], 03/25/2024 22:55:40 03/24/20 24 03/25/2024 CBC (INCL UDES DIFF/ PLT) monocytes 7.5 % normal Not Available [address], [address], 03/25/2024 22:55:40 03/24/20 24 03/25/2024 CBC (INCL UDES DIFF/ PLT) eosinophils 2.1 % normal Not Available [address], [address], 03/25/2024 22:55:40 03/24/20 24 03/25/2024 CBC (INCL UDES DIFF/ PLT) basophils 0.5 % normal Not Available [address], [address], 03/25/2024 22:55:40 03/24/20 24 03/25/2024 URINA LYSIS , COMPL ETE W/REF ELIZABETH TO CULTU RE color YELLOW yellow normal Not Available [facility] [address], [place], [address], 03/25/2024 22:55:41 03/24/20 24 03/25/2024 URINA LYSIS , COMPL ETE W/REF ELIZABETH TO CULTU RE appearance CLOUDY clear abnormal Not Available [address], [address], 03/25/2024 22:55:41 03/24/20 24 03/25/2024 URINA LYSIS , COMPL ETE W/REF ELIZABETH TO CULTU RE specific gravity 1.024 1.001- 1.035 normal Not Available [address], [address], 03/25/2024 22:55:41 03/24/20 24 03/25/2024 URINA LYSIS , COMPL ETE W/REF ELIZABETH TO CULTU RE pH 5.5 5.0-8. 0 normal Not Available [address], [address], 03/25/2024 22:55:41 03/24/20 24 03/25/2024 URINA LYSIS , COMPL ETE W/REF ELIZABETH TO CULTU RE glucose NEGATI VE negati ve normal Not Available [address], [address], 03/25/2024 22:55:41 03/24/20 24 03/25/2024 URINA LYSIS , COMPL ETE W/REF ELIZABETH TO CULTU RE bilirubin NEGATI VE negati ve normal Not Available [address], [address], 03/25/2024 22:55:41 03/24/20 24 03/25/2024 URINA LYSIS , COMPL ETE W/REF ELIZABETH TO CULTU RE ketones NEGATI VE negati ve normal Not Available [address], [address], 03/25/2024 22:55:41 03/24/20 24 03/25/2024 URINA LYSIS , COMPL ETE W/REF ELIZABETH TO CULTU RE occult blood 1+ negati ve abnormal Not Available [address], [address], 03/25/2024 22:55:41 03/24/20 24 03/25/2024 URINA LYSIS , COMPL ETE W/REF ELIZABETH TO CULTU RE protein NEGATI VE negati ve normal Not Available [address], [address], 03/25/2024 22:55:41 03/24/20 24 03/25/2024 URINA LYSIS , COMPL ETE W/REF ELIZABETH TO CULTU RE nitrite NEGATI VE negati ve normal Not Available [address], [address], 03/25/2024 22:55:41 03/24/20 24 03/25/2024 URINA LYSIS , COMPL ETE W/REF ELIZABETH TO CULTU RE leukocyte esterase 1+ negati ve abnormal Not Available [address], [address], 03/25/2024 22:55:41 03/24/20 24 03/25/2024 URINA LYSIS , COMPL ETE W/REF ELIZABETH TO CULTU RE WBC 6-10 /hpf < or = 5 abnormal Not Available [address], [address], 03/25/2024 22:55:41 03/24/20 24 03/25/2024 URINA LYSIS , COMPL ETE W/REF ELIZABETH TO CULTU RE RBC 3-10 /hpf < or = 2 abnormal Not Available [address], [address], 03/25/2024 22:55:41 03/24/20 24 03/25/2024 URINA LYSIS , COMPL ETE W/REF ELIZABETH TO CULTU RE squamous epithelial cells 20-40 /hpf < or = 5 abnormal Not Available [address], [address], 03/25/2024 22:55:41 03/24/20 24 03/25/2024 URINA LYSIS , COMPL ETE W/REF ELIZABETH TO CULTU RE bacteria MODERA TE /hpf none seen abnormal Not Available [address], [address], 03/25/2024 22:55:41 03/24/20 24 03/25/2024 URINA LYSIS , COMPL ETE W/REF ELIZABETH TO CULTU RE hyaline cast NONE SEEN /lpf none seen normal Not Available [address], [address], 03/25/2024 22:55:41 03/24/20 24 03/25/2024 URINA LYSIS , COMPL ETE W/REF ELIZABETH TO CULTU RE note This urine was mu zed for the prese nce of WBC, RBC, bacte susy, casts , and other forme d eleme nts. Only those eleme nts seen were repor emy. Not Available [address], [address], 03/25/2024 22:55:41 03/24/20 24 03/25/2024 REFLE XIVE URINE CULTU RE reflexive urine culture CULTU RE INDIC ATED - RESUL TS TO FOLLO W Not Available [address], [address], 03/25/2024 22:55:42 03/24/20 24 03/25/2024 TSH W/REF ELIZABETH TO FT4 TSH w/reflex to FT4 1.79 mIU/L normal Refer ence Range > or = 20 Years 0.40- 4.50 Pregn christel Range s First trime ster 0.26- 2.66 Secon d trime ster 0.55- 2.73 Third trime ster 0.43- 2.91 Not Available [address] [place], [address], 03/25/2024 22:55:43 03/24/20 24 03/25/2024 VITAM IN D,25- OH,TO ALEJO,I A vitamin D,25-oh,tota l,ia 15 NG/mL 30-100 low Vitam in D Statu s 25-OH Vitam in D: Defic iency : <20 ng/mL Insuf ficie ncy: 20 - 29 ng/mL Optim al: > or = 30 ng/mL For 25-OH Vitam in D testi ng on patie nts on D2-chan pplem entat ion and patie nts for whom quant itati on of D2 and D3 fract ions is requi red, the [facility] eD(TM ) 25-OH VIT D, (D2,D 3), LC/MS /MS is recom cat d: order code 77220 (tonia ents >2yrs ). See Note 1 Note 1 For addit ional infor bella munoz refer to http: //[facility] katia Jimenez stDia gnost ics.c om/fa q/FAQ 199 (This link is being provi ded for infor yaz alejandre/ yovani hernandez purpo ses only. ) Not Available [facility] [address] [place], [address], 03/25/2024 22:55:43 03/24/20 24 03/25/2024 HEMOG LOBIN A1C hemoglobin A1C 5.2 %_of_ total _HGB <5.7 normal For the purpo se of screelmer mag for the prese nce of diabe candelaria: <5.7% Consi stent with the absen ce of diabe canedlaria 5.7-6 .4% Consi stent with incre ased risk for diabe candelaria (pred iabet es) > or =6.5% Consi stent with diabe candelaria This assay resul t is consi stent with a decre ased risk of diabe candelaria. Curre ntly, no conse nsus exist s regar panda use of hemog lobin A1c for diagn osis of diabe candelaria in child sujatha. Accor ding to Ameri can Diabe candelaria Assoc iatio n (ADA) guide lines , hemog lobin A1c <7.0% repre sents optim al contr ol in non-p regna nt diabe tic patie nts. Diffe rent metri cs may apply to speci fic patie nt popul ation s. Stand ar[facility] of Medic al Care in Diabe candelaria(A DA). This test was perfo rmed on the [facility] deana c503 platf orm. Effec tive , a carrasco e in test platf orms from the [facility] t[facility] to the [place] deana c503 may have shift ed HbA1c resul ts lucinda red to histo rical resul ts. Based on labor atory valid ation testi ng condu cted at [facility] , the [facility] platf orm relat lali to the [facility] platf orm had an avera ge incre ase in HbA1c value of < or = 0.3%. This diffe rence is withi n accep emy varia bilit y estab lishe d by the Natio n[facility] [employer] hemog lobin Stand ardiz ation Progr am. Note that not all indiv idual s will have had a shift in their resul ts and direc t lucinda rison s betwe en histo rical and curre nt resul ts for testi ng condu cted on diffe rent platf orms is not recom cat d. Not Available [facility] [address] [place], [address], 03/25/2024 22:55:44 03/24/20 24 03/25/2024 CULTU RE, URINE , ROUTI NE culture, urine, routine SEE NOTE CULTU RE, URINE , ROUTI NE Micro Numbe r: [id number] Test Statu s: Final Speci men Sourc e: Urine Speci men Quali ty: Adequ ate Resul t: No Growt h Not Available [facility] [address] [place], [address], 03/25/2024 22:55:44 10/29/19 25 10/29/2024 MAMMO , scree yumiko, bilat eral No observ ation record ed. [email or web address] [facility] [address], [address], 03/03/2025 16:42:46 Result Notes None recorded. Problems Name Problem SNOMED Code Status Onset Date Resolution Date Notes Provider Name and Address Organization Details Recorded Time Pain in throat 886121654 Completed Not Available [facility] 3 00:59:22 Low back pain 938493820 Active Not Available [facility] 3 00:59:22 Chest pain 64359540 Completed Not Available [facility] 3 00:59:22 Pain in right foot 56147559955 9107 Completed Not Available [facility] 3 00:59:23 Dehydrati on 31952075 Completed Not Available [facility] 3 00:59:23 Sinusitis 13190161 Completed Not Available [facility] 3 00:59:23 Rosacea 673663901 Active 2017 Not Available [facility] 3 00:59:23 Cough 52641178 Completed Not Available [facility] 3 00:59:23 Upper respirato ry infection 58726117 Active Not Available [facility] 3 00:59:23 Costal chondriti s 08392871 Completed Not Available [facility] 3 00:59:23 Posterior rhinorrhe a 11637499 Active Not Available [facility] 3 00:59:23 Fatigue 82410696 Completed Not Available [facility] 3 00:59:23 Overweigh t 760217396 Active 2023 Etienne Chowdary MD [address], [address] [address], [place], [address] , [employer] 4 17:10:30 Cigarette smoker 24902745 Active 2023 Etienne Chowdary MD [address], [address], [place], [address] , [employer] [facility] [employer] [facility] 4 17:10:39 External hordeolum 4990930 Active 2023 DAISY Goel [address], [address], [place], [address] , [employer] 4 10:27:39 Celluliti s of periorbit al region of left eye 76596763935 9109 Active 2023 DAISY Goel [address], [address], [place], [address] , [employer] 4 11:28:47 Blepharit is of left eyelid 59024258230 9102 Active 2023 DAISY Goel [address], [address], [place], [address] , [employer] 4 11:44:21 Vitamin D deficienc y 82454246 Active 2024 Etienne Chowdary MD [address], [place], [address] , [employer] 5 16:45:58 Otalgia of left ear 0153243240 Active 2024 Etienne Chowdary MD [address], [place], [address] , [employer] 5 16:50:49 Problem Notes None recorded. Procedures Surgical History Date Name Laterality Status Provider Name and Address Organization Details Recorded Time 5 Smoking Cessation completed MD Tony Oliver [address], [place], [address], [employer] 03/03/2025 16:43:01 4 Smoking Cessation completed MD Tony Oliver [address], [place], [address], [employer] [facility] [employer] 12/23/2023 17:14:34 operation on fallopian tube completed Not Available [facility] 12/12/2022 00:48:56 Imaging Results None recorded. Procedure Notes None recorded. Medical Equipment None Reported. Allergies No known drug allergies Medications Name Sig Start Date Stop Date Status Note LastModified by Organization Details LastModified Time cyclobenzap rine 10 mg tablet active Not Available Not Available Not Available amoxicillin 500 mg capsule TK 1 C PO QID UNTIL GONE active Not Available Not Available No t Available Augmentin 875 mg-125 mg tablet Take 1 tablet every 12 hours by oral route. 11/18 completed Not Available Not Available Not Available prednisone 10 mg tablet Take by oral route with food. Day 1-4: 60 mg, Day 5-6: 50 mg, Day 7-8: 40 mg, Day 9-10: 30 mg, Day 11-12: 20 mg, Day 13-15: 10 mg. active Not Available Not Available No t Available ibuprofen 800 mg tablet TK 1 T PO Q 6 TO 8 H PRF PAIN active Not Available Not Available No t Available benzonatate 200 mg capsule Take 1 capsule 3 times a day by oral route as needed for 10 days. active Not Available Not Available No t Available Celestone Soluspan 6 mg/mL suspension for injection Take 1 mL as needed by injection route. active [facility]# [id number] -01 Not Available Not Available Not Available Rocephin 1 gram solution for injection 11/18 completed [facility]# [id number] -[id number] Not Available Not Available Not Available Depo-Medrol 20 mg/mL suspension for injection Take 1 mL as needed by injection route. active [facility]# [id number] -[id number] Not Available Not Available Not Available Zithromax Z-Dequan 250 mg tablet TAKE 2 TABLETS (500 MG) BY ORAL ROUTE ONCE DAILY FOR 1 DAY THEN 1 TABLET (250 MG) BY ORAL ROUTE ONCE DAILY FOR 4 DAYS 11/18 completed Not Available Not Available Not Available sulfamethox azole 800 mg-trimetho prim 160 mg tablet TK 1 T PO Q 12 H FOR 3 DAYS 02/05 completed Not Available Not Available Not Available triamcinolo ne acetonide 0.1 % topical cream APPLY A THIN LAYER TO THE AFFECTED AREA(S) BY TOPICAL ROUTE 2 TIMES PER DAY active Not Available Not Available No t Available amoxicillin 500 mg tablet Take 1 tablet every 8 hours by oral route for 7 days. active Not Available Not Available No t Available Kenalog 40 mg/mL suspension for injection 11/18 completed [facility]# [id number] -[id number] Not Available Not Available Not Available Macrobid 100 mg capsule Take 1 capsule every 12 hours by oral route. active Not Available Not Available No t Available Mobic 15 mg tablet Take 1 tablet every day by oral route with meals for 30 days. 03/13 completed Not Available Not Available Not Available oxycodone-a cetaminophe n 5 mg-325 mg tablet active Not Available Not Available No t Available doxycycline monohydrate 50 mg tablet TK 1 T PO QD active Not Available Not Available No t Available benzonatate 100 mg capsule TK 1 C PO Q 4 TO 6 H PRN 03/24 completed Not Available Not Available Not Available doxycycline monohydrate 100 mg capsule TAKE 1 CAPSULE BY MOUTH TWICE DAILY FOR 5 DAYS DIRECTED 03/03 completed Not Available Not Available Not Available cephalexin 500 mg capsule 01/07 completed Not Available Not Available Not Available cyanocobala min (vit B-12) 1,000 mcg/mL injection solution Inject 1 mL every month by intramusc ular route. active [facility]# [id number] Not Available Not Available Not Available oxybutynin chloride ER 5 mg tablet,exte nded release 24 hr active Not Available Not Available Not Available montelukast 10 mg tablet Take 1 tablet every day by oral route in the evening for 30 days. active Not Available Not Available No t Available clindamycin 2 % vaginal cream INSERT 1 APPLICATI ON VAGINALLY EVERY NIGHT FOR 7 DAYS 03/03 completed Not Available Not Available Not Available ibuprofen 600 mg tablet active Not Available Not Available Not Available levofloxaci n 750 mg tablet active Not Available Not Available Not Available methylpredn isolone 4 mg tablets in a dose pack active Not Available Not Available Not Available hydrocortis one 2.5 % topical ointment 12/11 completed Not Available Not Available Not Available fluticasone propionate 50 mcg/actuati on nasal spray,suspe nsion Inhale 2 sprays every day by intranasa l route in the morning for 30 days. active Not Available Not Available No t Available metronidazo le 0.75 % topical gel APPLY A THIN LAYER TO THE AFFECTED AREA(S) BY TOPICAL ROUTE 2 TIMES PER DAY IN THE MORNING AND EVENING active Not Available Not Available No t Available doxycycline hyclate 100 mg tablet Take 1 tablet twice a day by oral route for 14 days. active Not Available Not Available No t Available loratadine 10 mg tablet TK 1 T PO QD 12/14 completed Not Available Not Available Not Available naproxen 500 mg tablet Take 1 tablet twice a day by oral route. 12/11 completed Not Available Not Available Not Available nicotine 7 mg/24 hr daily transdermal patch APPLY 1 PATCH TOPICALLY TO THE SKIN EVERY DAY DIRECTED active Not Available Not Available No t Available neomycin-po lymyxin-hyd rocort 3.5 mg-10,000 unit/mL-1 % ear drops,susp SHAKE LIQUID AND INSTILL 3 DROPS TO AFFECTED EAR THREE TIMES DAILY active Not Available Not Available No t Available cyclobenzap rine 5 mg tablet TK 1 T PO D HS FOR 30 DAYS active Not Available Not Available No t Available Tri-Sprinte c (28) 0.18 mg(7)/0.215 mg(7)/0.25 mg(7)-0.035 mg tablet TK 1 T PO D active Not Available Not Available No t Available metronidazo le 1 % topical gel APPLY TO THE AFFECTED AREA(S) on face BY TOPICAL ROUTE ONCE DAILY ; RUB IN GENTLY AND COMPLETEL Y 12/11 completed Not Available Not Available Not Available intrauterin e device (IUD) Mirena March 20202020 active Not Available Not Available Not Avai lable ProAir HFA 90 mcg/actuati on aerosol inhaler INHALE 2 PUFFS PO Q 4 H PRN active Not Available Not Available No t Available diclofenac 1 % topical gel APPLY 2 GRAMS TO THE AFFECTED AREA(S) BY TOPICAL ROUTE 4 TIMES PER DAY as needed active Not Available Not Available No t Available ProChamber active Not Available Not Av ailable Not Available 28 mg iron-800 mcg tablet TK 1 T PO QD 12/11 completed Not Available Not Available Not Available Virtussin AC 10 mg-100 mg/5 mL oral liquid TK 10 ML PO Q 4 H PRN 12/11 completed Not Available Not Available Not Available Fluarix Quad (PF) 60 mcg (15 mcg x 4)/0.5 mL IM syringe active Not Available Not Available N ot Available Hair, Skin and Nails (biotin) active Not Available Not Available Not Available Vitals Date Recorded Body mass index (BMI) Body height Oxygen saturation Oxygen saturation in Arterial blood by Pulse oximetry Heart rate Body temperature Body weight Systolic And Diastolic Provider Name and Address Organization Details Last Updated DateTime 2 28.7 kg/m2 167.64 cm 98 % 98 % 85 /min 98.41 [degF] 92174.4 4 g 118/72 mm[Hg] Not Available [facility] 3 00:51:45 Date Recorded Body weight Body mass index (BMI) Body height Oxygen saturation Oxygen saturation in Arterial blood by Pulse oximetry Respiratory rate Heart rate Body temperature Systolic And Diastolic Provider Name and Address Organization Details Last Updated DateTime 3 46334.7 7 g 29.3 kg/m2 170.18 cm 98 % 98 % 18 /min 88 /min 99.1 [degF] 134/78 mm[Hg] BILL Nair [facility] 3 16:07:44 Date Recorded Systolic And Diastolic Provider Name and Address Organization Details Last Updated DateTime 12/23/2023 118/72 mm[Hg] Debbie Oliver [address] [place] [address], [address], [address], [place] [employer] [facility] [employer] 12/23/2023 17:07:33 Date Recorded Body height Body mass index (BMI) Body weight Body temperature Heart rate Respiratory rate Oxygen saturation Oxygen saturation in Arterial blood by Pulse oximetry Provider Name and Address Organization Details Last Updated DateTime 4 170.18 cm 29.3 kg/m2 64003.1 2 g 98.1 [degF] 86 /min 16 /min 99 % 99 % Perez Adamson [place] [employer] [facility] [employer] 4 17:04:46 Date Recorded Body height Body mass index (BMI) Body weight Body temperature Oxygen saturation Oxygen saturation in Arterial blood by Pulse oximetry Heart rate Systolic And Diastolic Provider Name and Address Organization Details Last Updated DateTime 5 170.18 cm 29.4 kg/m2 22222.5 7 g 97.9 [degF] 98 % 98 % 85 /min 118/70 mm[Hg] Juliette Denny RN [facility] [employer] 5 16:36:19 Social History Question Answer Notes LastModified by Organization Details LastModified Time Tobacco Smoking Status Current Every Day Smoker Not Available [facility], [facility] 12/12/2022 00:46:34 Do You Have An Advance Directive? No Information not available 12/18/2022 Is Blood Transfusion Acceptable In An Emergency? Yes [email or web address] Information not available 12/18/2022 What Is Your Level Of Caffeine Consumption? Occasional 2 A Week Caramel Craze Iced Lattes From [employer] 2 (12 Oz) Cans Of Either [place] Or Ski Per Week [email or web address] Information not available 03/03/2025 What Is Your Code Status? Full Code [email or web address] Information not available 12/18/2022 In The 14 Days Before Symptom Onset, Have You Had Close Contact With A Laboratory-confi rmed COVID-19 While That Case Was Ill? No [email or web address] Information not available 12/18/2022 In The 14 Days Before Symptom Onset, Have You Had Close Contact With A Person Who Is Under Investigation For COVID-19 While That Person Was Ill? No [email or web address] Information not available 12/18/2022 What Type Of Diet Are You Following? REGULAR MIGRATION.0301 [id number] Information not available 12/12/2022 Which Illicit Or Recreational Drugs Have You Used? THC Liquid Information not available 03/03/2025 What Is The Highest Grade Or Level Of School You Have Completed Or The Highest Degree You Have Received? [id number] MIGRATION.0301 [id number] Information not available 12/12/2022 Have There Been Any Changes To Your Family Or Social Situation? No MIGRATION.0301 [id number] Information not available 12/12/2022 How Many Years Have You Used Illicit Or Recreational Drugs? 10 Information not available 03/03/2025 Do You Use Insect Repellent Routinely? No MIGRATION.0301 [id number] Information not available 12/12/2022 Where Do You Live? SingleLevelHouse MIGRATION.0301 [id number] Information not available 12/12/2022 Do You Have A Medical Power Of Pipe Joints Supervisor? No [email or web address] Information not available 12/18/2022 How Many Children Do You Have? 3 [email or web address] Information not available 12/18/2022 What Is Your Current Pack Years? 10-19packyears [email or web address] Information not available 03/03/2025 Do You Have Any Pets? No MIGRATION.0301 [id number] Information not available 12/12/2022 Do You Use Protection During Sex? No [email or web address] Information not available 12/18/2022 What Is Your Relationship Status? MIGRATION.0301 [id number] Information not available 12/12/2022 Do You Use Your Seat Belt Or Car Seat Routinely? Yes MIGRATION.0301 [id number] Information not available 12/12/2022 Are You Sexually Active? Yes [email or web address] Information not available 12/18/2022 Do You Have Smoke And Carbon Monoxide Detectors In Your Home? Yes MIGRATION.0301 [id number] Information not available 12/12/2022 At What Age Did You Start Smoking Tobacco? 17 [email or web address] Information not available 03/03/2025 Are You Passively Exposed To Smoke? Yes MIGRATION.0301 [id number] Information not available 12/12/2022 Are There Any Smokers In Your House? Yes MIGRATION.0301 [id number] Information not available 12/12/2022 How Much Tobacco Do You Smoke? 1 PPW MIGRATION.0301 [id number] Information not available 12/12/2022 Do You Participate In Social Media? Yes MIGRATION.0301 329011 Information not available 12/12/2022 Do You Use Sunscreen Routinely? No MIGRATION.0301 [id number] Information not available 12/12/2022 How Many Years Have You Smoked Tobacco? 15 [email or web address] Information not available 03/03/2025 Have You Recently Traveled Abroad? No [email or web address] Information not available 12/18/2022 Have You Used IV Drugs? No [email or web address] Information not available 03/03/2025 Are You Currently In School? No MIGRATION.0301 [id number] Information not available 12/12/2022 Do You Have Any Dietary Restrictions? No MIGRATION.0301 816381 Information not available 12/12/2022 How Many Years Have You Used E-cigarettes Or Vape? 1 [email or web address] Information not available 03/03/2025 Sex: Female Functional Status Question Answer Note LastModified by Organizat ion Details LastModified Time Do you use any illicit or recreational drugs? Yes [email or web address] Information not available 03/03/2025 Do you or have you ever used any other forms of tobacco or nicotine? Yes [email or web address] Information not available 03/03/2025 What is your level of alcohol consumption? Occasional MIGRATION.[id number] 7323 Information not available 12/12/2022 Do you or have you ever used smokeless tobacco? Never used smokeless tobacco Information not available 03/03/2025 What is your occupation? [employer] MIGRATION.825958 6004 Information not available 12/12/2022 Do you or have you ever used e-cigarettes or vape? Former user of electronic cigarettes [email or web address] Information not available 03/03/2025 What is your exercise level? Moderate MIGRATION.688380 0865 Information not available 12/12/2022 Mental Status Question Answer Note LastModified by Organizat ion Details LastModified Time Do you feel stressed (tense, restless, nervous, or anxious, or unable to sleep at night)? [id number] [id number] 6 Information not available 12/12/2022 Family History Relationship Description Onset Age of this Age Resolved Age Notes LastModified by Organization Details LastModified Time Father Myocardial infarction MIGRATION.721 [id number] Not available 12/12/2022 00:49:00 Notes:arthritis on both side s Medical History No medical history recorded. Gynecological History Statement/Question Response Date of Last Colonoscopy Date of LMP Most Recent Bone Density Date of Last Pap Smear Current Control Method IUD Most Recent Mammogram Obstetrics History GPAL:G 3 P 3 0 0 3 Type Value Full Term 3 Living 3 Total 3 Immunizations Vaccine Type Date Status Note Provider Nam e and Address Organization Details Recorded Time Influenza, split virus, quadrivalent, preservative 9 completed Not Available [facility] 12/12/2022 01:17:27 Tdap 8 completed Not Available [facility] 12/12/2022 01:17:27 Influenza, split virus, quadrivalent, PF 0 completed Not Available [facility] 12/12/2022 01:17:28 Influenza, split virus, trivalent, PF 3 completed Not Available [facility] 12/12/2022 01:17:28 Past Encounters Encounter ID Performer Location Encounter Start Date Encounter Closed Date Diagnosis/Indication Diagnosis SNOMED-CT Code Diagnosis ICD10 Code Diagnosis Note [id number] Elvira Child NP [facility] [address] [address] 12/14/2020 00:00:00 12/14/2020 18:10:30 [id number] Etienne Chowdary MD [address] [address] 12/15/2021 00:00:00 12/15/2021 17:16:00 [id number] Elvira Child NP [address] [address] 12/18/2022 15:54:13 12/18/2022 16:39:23 Anemia screening 562395196 Z13.0 Diabetes m ellitus screening 390567185 Z13.1 Thyroid di sorder screening 861637983 Z13.29 Hyperlipid emia screening 552415157 Z13.220 Adult heal th examination 022139775 Z00.00 Encouraged well blanaced meals, active lifestyle, and routine vision and dental appts. [id number] Etienne Chowdary MD [address] [address] 12/23/2023 16:53:27 12/23/2023 17:22:02 Adult health examination 682058786 Z00.00 Overweight 709424649 E66 .3 Cigarette smoker 9069302 7 F17.210 Screening for disorder 850053612 Z13.9 [id number] Etienne Chowdary MD [address] [address] 02/13/2024 10:22:07 02/13/2024 11:50:13 Blepharitis of left eyelid 7261515492 34483 H01.006 Avoid eye makeupAppl y warm compress for 5-10 minutes 4 times dailyRetur n to the clinic if not resolved in 10-14 days or if redness spreads, vision begins to change, or fevers occur.Util ize ibuprofen OTC PRN for pain and inflammati on [id number] Etienne Chowdary MD [address] [address] 03/03/2025 16:27:17 03/03/2025 16:58:05 Adult health examination 024160896 Z00.00 Overweight 693018754 E66 .3 Cigarette smoker 9571553 7 F17.210 Vitamin D deficiency 347 30817 E55.9 Otalgia of left ear 1010 313662 H92.02 Health Concerns Section Related Observation LastModified by Organization Detai ls LastModified Time None Recorded Concern Status LastModified by Organization Details LastModified Time None Recorded Advance Directives Directive N: Payers Insurance Date Sequence Insurance Name Policy Number Policy Hernandez Covered Member ID Hernandez Member ID Guarantor Name 03/03/2025 1 [facility] - DOS PRIOR TO 2024 (PPO) Srinivasa Yung [id number] Ольга Yung 03/21/2025 1 [facility] - DOS 10/14/2024 AND AFTER Ольга Yung [id number] Ольга Yung Notes Date Note Type Note Provider Name and Address Organization Details Recorded Time 12/23/2023 text/html Pt is here for h er annual exam. Doing overall well. Denies any concerns. Etienne Chowdary MD [address], [place] [address], [place], [address], [employer] 12/23/2023 17:21:28 02/13/2024 text/html Ольга Nuñez is a 43 year old female patient on telephonic visit to discuss and eye complaint. She has a stye in her left eye, this began Saturday night with pain in the upper eyelid. Her eye is swollen today, almost shut. She declines visual changed or fevers. There is redness and inflammation to the eyelid. She denies recent illness. [email or web address] DAISY Goel [address], [place], [address], [employer] 02/13/2024 11:48:39 03/03/2025 text/html Pt is here for h er annual exam. Doing overall well. Needs to get her annual labs done. C/o Lt ear area pain and fullness since yesterday, mild congestion ++, no other symptoms/concern. Etienne Chowdary MD [address] [facility], [facility] [address], [place], [address], [place] [facility] 03/03/2025 16:58:47 OBGyn Episode No OBEpisode recorded.
== END 2025-04-22 08:22 | disposition home or self-care (01) ==
PROVIDERS: PCP Family Medicine; Visit Provider Family Medicine
DX: F17.210 Nicotine dependence, cigarettes, uncomplicated (principal)
CPT/HCPCS: 71046